=== PATIENT | female | born 1985 | race Caucasian/White ===

== ENCOUNTER 2021-12-06 05:53 | Emergency (ER) | payer BC ==
[~2021-12-06] VITALS: Ht 149.9 cm; Wt 85.9 kg
[2021-12-06 06:08] VITALS: TEMP 98.2
[2021-12-06 06:52] LABS: BASO # 0.1 K/mm3 (0.0-0.2); BASO % 0.8 % (0.0-2.0); EOS # 0.1 K/mm3 (0.0-0.7); EOS % 1.7 % (0.0-4.0); GRAN # 4.7 K/mm3 (1.4-6.5); GRAN % 60.4 % (42.2-75.2); HEMATOCRIT 42.1 % (37.0-47.0); HEMOGLOBIN 13.8 g/dl (12.5-16.0); LYMPH # 2.3 K/mm3 (1.2-3.4); LYMPH % 28.9 % (20.0-51.0); MEAN CELL VOLUME 95 fl (80.0-100.0); MEAN CORPUSCULAR HEMOGLOBIN 31 pg (27-31); MEAN CORPUSCULAR HGB CONC 33 g/dl (33.0-37.0); MEAN PLATELET VOLUME 10.9 fl (7.4-10.4); MONO # 0.6 K/mm3 (0.1-0.6); MONO % 7.8 % (1.7-9.3); PLATELET COUNT 261 K/mm3 (130-400); RED BLOOD COUNT 4.44 M/mm3 (4.10-5.30); REDCELL DISTRIBUTION WIDTH-CV 12.8 % (11.5-14.5)
[2021-12-06] MEDS ORDERED: CARAFATE 1GM1 G PO (06:53)
[2021-12-06] MEDS ORDERED: PROTONIX 40MG T40 MG PO (06:53)
[2021-12-06 07:23] LABS: ALBUMIN 3.3 gm/dL (3.5-5.0); BILIRUBIN,TOTAL 0.2 mg/dL (0.2-1.2); C-REACTIVE PROTEIN 0.27 mg/dL (0.00-0.50); CALCIUM 9.2 mg/dL (8.4-10.2); CREATININE, serum 0.79 mg/dL (0.57-1.11); POTASSIUM 3.8 mmol/L (3.5-4.5); TOTAL PROTEIN 6.7 gm/dL (6.2-8.1)
[2021-12-06 07:26] VITALS: BP 146/58; PULSE 73
== END 2021-12-06 07:36 | disposition home or self-care (01) ==
LOC: COL.ER 05:53
PROVIDERS: Emergency Medicine
DX: K29.70 Gastritis, unspecified, without bleeding (principal); Z90.49 Acquired absence of other specified parts of digestive tract; Z32.02 Encounter for pregnancy test, result negative
CPT/HCPCS: J2405; J7030

== ENCOUNTER 2023-03-08 16:58 | Emergency (ER) | payer OTHER ==
[~2023-03-08] VITALS: Ht 149.9 cm; Wt 102.3 kg
[~2023-03-08 16:58] MED LIST: CARAFATE 1GM1 G PO; CARAFATE S1 GM/10 ML PO; CEFTIN 250250 MG/TAB PO; PROTONIX 40MG T40 MG PO
[2023-03-08 17:02] VITALS: TEMP 98.3
[2023-03-08 18:08] LABS: BASO # 0.1 K/mm3 (0.0-0.2); BASO % 0.6 % (0.0-2.0); EOS # 0.1 K/mm3 (0.0-0.7); GRAN # 7.3 K/mm3 (1.4-6.5); GRAN % 63.9 % (42.2-75.2); HEMATOCRIT 41.8 % (37.0-47.0); HEMOGLOBIN 13.3 g/dl (12.5-16.0); LYMPH # 3.3 K/mm3 (1.2-3.4); MEAN CELL VOLUME 96 fl (80.0-100.0); MEAN CORPUSCULAR HEMOGLOBIN 30 pg (27-31); MEAN CORPUSCULAR HGB CONC 32 g/dl (33.0-37.0); MONO # 0.6 K/mm3 (0.1-0.6); MONO % 5.1 % (1.7-9.3); PLATELET COUNT 310 K/mm3 (130-400); RED BLOOD COUNT 4.37 M/mm3 (4.10-5.30); REDCELL DISTRIBUTION WIDTH-CV 13.4 % (11.5-14.5)
[2023-03-08 19:05] LABS: CALCIUM 8.9 mg/dL (8.4-10.2); CREATININE, serum 0.89 mg/dL (0.57-1.11); POTASSIUM 3.7 mmol/L (3.5-4.5)
[2023-03-08 19:32] VITALS: BP 134/86; PULSE 84
[2023-03-08] MEDS ORDERED: EPIPEN 2-PAK1 MG/ML IM (19:38)
== END 2023-03-08 20:00 | disposition home or self-care (01) ==
LOC: COL.ER 16:58
PROVIDERS: Nurse Practitioner
DX: J30.1 Allergic rhinitis due to pollen (principal)
CPT/HCPCS: J1200; J2930; J7030

== ENCOUNTER 2023-08-18 00:15 | Observation (INO) | payer SELFPAY ==
[~2023-08-18] VITALS: Ht 152.4 cm; Wt 105.4 kg
[~2023-08-18 00:15] MED LIST changes: +EPIPEN 2-PAK1 MG/ML IM
[2023-08-18 00:47] LABS: BASO # 0.1 K/mm3 (0.0-0.2); BASO % 0.6 % (0.0-2.0); EOS # 0.1 K/mm3 (0.0-0.7); EOS % 0.8 % (0.0-4.0); GRAN # 9.4 K/mm3 (1.4-6.5); GRAN % 68.9 % (42.2-75.2); HEMATOCRIT 41.1 % (37.0-47.0); HEMOGLOBIN 13.7 g/dl (12.5-16.0); LYMPH # 3.3 K/mm3 (1.2-3.4); LYMPH % 23.9 % (20.0-51.0); MEAN CELL VOLUME 91 fl (80.0-100.0); MEAN CORPUSCULAR HEMOGLOBIN 30 pg (27-31); MEAN CORPUSCULAR HGB CONC 33 g/dl (33.0-37.0); MEAN PLATELET VOLUME 10.4 fl (7.4-10.4); MONO # 0.7 K/mm3 (0.1-0.6); MONO % 5.3 % (1.7-9.3); PLATELET COUNT 293 K/mm3 (130-400); RED BLOOD COUNT 4.52 M/mm3 (4.10-5.30); REDCELL DISTRIBUTION WIDTH-CV 13.6 % (11.5-14.5)
[2023-08-18 01:03] LABS: ALBUMIN 3.6 g/dL (3.5-5.0); BILIRUBIN,TOTAL 0.3 mg/dL (0.2-1.2); CALCIUM 10.1 mg/dL (8.4-10.2); CREATININE, serum 0.92 mg/dL (0.57-1.11); POTASSIUM 3.5 mEq/L (3.5-4.5); TOTAL PROTEIN 7.5 g/dl (6.2-8.1)
[2023-08-18 02:20] LABS: COLLECTION METHOD CLEAN CATCH
[2023-08-18] MEDS ORDERED: Iohexol 300 - 100 ML VIAL IV ONE (02:29)
[2023-08-18 02:30] LABS: PH 5.5 (5.0-8.5); URINE APPEARANCE CLEAR (CLEAR/HAZY); URINE BLOOD 1+ (NEGATIVE); URINE COLOR YELLOW (YELLOW); URINE GLUCOSE NEGATIVE (NEGATIVE); URINE KETONE NEGATIVE (NEGATIVE); URINE NITRATE NEGATIVE (NEGATIVE); URINE PROTEIN(semi-quant) NEGATIVE (NEGATIVE); URINE UROBILINOGEN 0.2 E.U/dL (0.2-1.0)
[2023-08-18] MEDS ORDERED: NS 100 ML IV SCH (02:30)
[2023-08-18] MEDS ORDERED: Ketorolac 30 MG/ML VIAL IV ONE (02:30)
[2023-08-18] MEDS ORDERED: SYNTHROID0.05 MG/TA PO (05:42)
[2023-08-18] MEDS ORDERED: EUTHYROX25 MCG (05:44)
[2023-08-18 05:56] VITALS: BP 129/83; PULSE 99; TEMP 98.4
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
[2023-08-18] MEDS ORDERED: Ondansetron 4 MG/2 ML VIAL IV PRN (06:30)
[2023-08-18 06:53] LABS: HEMATOCRIT 38.6 % (37.0-47.0); HEMOGLOBIN 12.9 g/dl (12.5-16.0)
[2023-08-18] MEDS ORDERED: Ketorolac 30 MG/ML VIAL IV SCH (08:00)
[2023-08-18 08:14] VITALS: BP 107/68; PULSE 90; TEMP 98.1
[2023-08-18] MEDS ORDERED: NORCO 325 MG-51 TAB PO (09:27)
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
[2023-08-18 11:40] VITALS: BP 128/68; PULSE 96; TEMP 98.3
[2023-08-18 14:05] LABS: HEMOGLOBIN 12.3 g/dl (12.5-16.0)
[2023-08-18 14:08] LABS: HEMATOCRIT 36.1 % (37.0-47.0)
--- NOTE | 2023-08-18 16:22 | NUR ---
DISCHARGE INSTRUCTIONS PROVIDED. PATIENT EDUCATION GIVEN. IV DC'D. NO FOLLOW UP APPOINTMENT TO DISCUSS. PATIENT EDUCATED ON FOLLOW UP IF NEEDED. NO QUESTIONS OR CONCERNS FROM PATIENT. MEDICATIONS REVIEWED.
[2023-08-18 16:32] VITALS: BP 130/76; PULSE 92; TEMP 98.5; TEMP 985
== END 2023-08-18 18:30 | disposition home or self-care (01) ==
LOC: COL.ER 00:15 → SURG 04:33
PROVIDERS: Nurse Practitioner Family; ADMIT Surgery
DX: S30.1XXA Contusion of abdominal wall, initial encounter (principal); V49.9XXA Car occupant (driver) (passenger) injured in unspecified traffic accident, initial encounter
CPT/HCPCS: G0378; J1885; Q9967